=== PATIENT | female | born 1995 | race Two or more races ===

== ENCOUNTER 2016-11-18 09:43 | Emergency (ER) | payer OTHER ==
[2016-11-18 09:48] VITALS: BP 127/67; PULSE 75; TEMP 98; BMI 24.0
--- NOTE | 2016-11-18 10:11 | PDOC ---
History of Present Illness - General Chief Complaint: Vaginal Bleeding Stated Complaint: 15 WKS PREG, BLEEDING, SIDES PAIN Time Seen by Provider: 11/18/16 10:07 History Source: Patient - History of Present Illness Initial Comments: 11/18/16 10:41 Ms. Declan Rossi is a 21 y/o female , 15 weeks confirmed IUP at last OB visit two weeks ago. Pt. presents to the ED today complaining of hematuria and flank pain. Pt. states that the pain and bleeding started on Wednesday11/14/16. Admits to dysuria, frequency, unable to finish urinating. Denies bleeding from the vaginal canal, passage of tissue from the vaginal canal. Denies fevers, chills, chest pain, SOB. Pt. does have established OB care. REVIEW OF SYSTEMS: GENERAL/CONSTITUTIONAL: No fever or chills. No weakness. No weight change. HEAD, EYES, EARS, NOSE AND THROAT: No change in vision. No ear pain or discharge. No sore throat. CARDIOVASCULAR: No chest pain or palpitations. RESPIRATORY: No cough, wheezing, or shortness of breath. GASTROINTESTINAL: No nausea, vomiting, diarrhea or constipation. GENITOURINARY: (-) dysuria, frequency, hematuria, or change in urination. MUSCULOSKELETAL: No joint or muscle swelling or pain. No neck or back pain. SKIN: No rash or easy bruising. NEUROLOGIC: No headache, vertigo, loss of consciousness, or loss of sensation. PSYCHIATRIC: No depression or anxiety. ENDOCRINE: No increased thirst. No abnormal weight change. HEMATOLOGIC/LYMPHATIC: No anemia, easy bleeding, or history of blood clots. ALLERGIC/IMMUNOLOGIC: No hives or skin allergy. No latex allergy. Past History - Past Medical History Allergies/Adverse Reactions: Allergies Allergy/AdvReac Type Severity Reaction Status Date / Time No Known Allergies Allergy Verified 11/18/16 09:48 Other medical history: NONE - Psycho/Social/Smoking Cessation Hx Anxiety: No Suicidal Ideation: No Smoking History: Never smoked Hx Alcohol Use: No Drug/Substance Use Hx: No Substance Use Type: None *Physical Exam - Vital Signs Last Vital Signs Temp Pulse Resp BP Pulse Ox 98.0 F 75 20 127/67 100 11/18/16 09:45 11/18/16 09:45 11/18/16 09:45 11/18/16 09:45 11/18/16 09:45 - Physical Exam Comments: 11/18/16 11:09 GENERAL: The patient is afebrile, awake, alert, and fully oriented, in no acute distress. HEAD: Normal with no signs of trauma. ENT: Pupils equal, round and reactive to light, extraocular movements intact, sclera anicteric, conjunctiva clear. Neck supple. LUNGS: Clear to auscultation bilaterally. Normal excursion. No respiratory distress or use of accessory muscles. CV: RRR, S1/S2, no MRG. Cap refill < 2 sec. ABDOMEN: Soft, non-distended, non-tender. EXTREMITIES: Normal range of motion, no edema. NEUROLOGICAL: Normal speech, normal gait. CN II-XII grossly intact. PSYCH: Normal mood, normal affect. SKIN: Warm, dry, normal turgor, no rashes or lesions noted. exam: (-) CVA tenderness. No erythema around the urethra opening. Cervical os is closed. No active bleeding from os No blood in the vault. Increased discharge in the vaginal canal. Medical Decision Making - Medical Decision Making 11/18/16 11:14 Ms. Declan Ramirez is a 21 y/o female, with confirmed IUP approximatley 15 weeks from OB care. Pt. is a well appearing female with reported dysuria, hematuria and increased frequency and some flank pain. Most likely presentation of a UTI. Less likely pyleonephritis due to lack of fever and CVA tenderness. No evidence of threatened as the cervical os is closed and no bleeding is noted. Confirmed with bedside US with normal heart rate and movement. Will obtain UA and UC Will treat empirically with antibiotics. Consider discharge. *DC/Admit/Observation/Transfer Diagnosis at time of Disposition: UTI (urinary tract infection) during - Discharge Dispostion Disposition: HOME - Patient Instructions Printed Discharge Instructions: DI for Urinary Tract Infection (UTI) Additional Instructions: You have a urinary tract infection. We have prescribed antibiotics for you to take that are safe for . Take the medicine as prescribed and finish the prescription even if you feel better. Urinary tract infections are common in . Drink plenty of water as this can help with symptom management. Preliminary ultrasound done today shows a normal heart rate and movement. If you have worsening of symptoms, are unable to urinate, increased back pain or fevers return to the ED. Follow up with your CHIP TESTER in one week.
[2016-11-18 11:05] LABS: URINE APPEARANCE SLCLOUDY; URINE BILIRUBIN NEGATIVE (NEGATIVE); URINE COLOR STRAW; URINE GLUCOSE (UA) NEGATIVE (NEGATIVE); URINE KETONE NEGATIVE (NEGATIVE); URINE LEUK ESTERASE NEGATIVE (NEGATIVE); URINE NITRITE NEGATIVE (NEGATIVE); URINE PROTEIN NEGATIVE (NEGATIVE); URINE UROBILINOGEN NEGATIVE E.U./dl (0.2-1.0)
[2016-11-18 11:06] LABS: URINE BLOOD 1+ (NEGATIVE)
--- NOTE | 2016-11-18 11:09 | PDOC ---
*Physical Exam - Vital Signs Last Vital Signs Temp Pulse Resp BP Pulse Ox 98.0 F 75 20 127/67 100 11/18/16 09:45 11/18/16 09:45 11/18/16 09:45 11/18/16 09:45 11/18/16 09:45 Medical Decision Making - Medical Decision Making 11/18/16 11:04 Patient seen and evaluated with the nurse practitioner. 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 No pelvic cramping or vaginal bleeding or passage of clots or tissue. No fevers or chills. Agree with exam as noted No vaginal bleeding on speculum exam Bedside ultrasound shows live IUP with normal heart rate 21-year-old female second trimester presents with symptoms consistent with UTI, well-appearing and afebrile, not clinically consistent with pyelonephritis. Check UA and culture Empiric antibiotics for symptomatically UTI Reassurance and discharge with OB follow-up *DC/Admit/Observation/Transfer Diagnosis at time of Disposition: UTI (urinary tract infection) during - Discharge Dispostion Condition at time of disposition: Stable
[2016-11-18 11:26] LABS: URINE BACTERIA RARE /hpf (NONE SEEN); URINE MUCUS RARE; URINE RBC 2 /hpf (0-3); URINE WBC 3 /hpf (3-5)
== END 2016-11-18 12:07 | disposition home or self-care (01) ==
LOC: JER 09:43
DX: O23.42 Unspecified infection of urinary tract in pregnancy, second trimester (principal); Z3A.15 15 weeks gestation of pregnancy
CPT/HCPCS: 81003; 81015; 87086; 87186; 99282-25

== ENCOUNTER 2017-05-24 21:45 | Inpatient (IN) | payer OTHER ==
[2017-05-24 23:03] VITALS: BMI 24.1
[2017-05-24 23:45] LABS: BASOPHIL 0.2 % (0-2.0); EOSINOPHIL 0.4 % (0-4.5); MCH 24.9 pg (25.7-33.7); MCHC 31.9 g/dl (32.0-36.0); MEAN CELL VOLUME 78.1 fl (80-96); MEAN PLT VOLUME 10.5 fl (7.5-11.1); PLATELET COUNT 157 K/MM3 (134-434); RDW 17.7 % (11.6-15.6); WHITE BLOOD COUNT 11.7 K/mm3 (4.0-10.0)
[2017-05-25 00:09] LABS: INR 0.95 (0.82-1.09); PROTHROMBIN TIME (PATIENT) 10.4 SEC (9.98-11.88)
[2017-05-25 00:11] LABS: ACTIVATED PTT 26.9 SECONDS (26.9-34.4)
[2017-05-25 00:12] LABS: ANION GAP 9 (8-16); CALCIUM 8.4 mg/dL (8.5-10.1); CO2 24 mmol/L (21-32); CREATININE 0.5 mg/dL (0.55-1.02); GLUCOSE,RANDOM 97 mg/dL (74-106)
[2017-05-25] MEDS: DEXTROSE 5%-LACTATED RINGERS 1,000 ML IV SCH ×2 (03:00→08:20)
[2017-05-25] MEDS ORDERED: OXYTOCIN 15 UNITS/ LR 250 ML 250 ML IVPB SCH (06:45)
[2017-05-25] MEDS ORDERED: BUTORPHANOL TARTRATE 1 MG/ML VIAL IVPUSH ONE (09:00)
--- NOTE | 2017-05-25 09:07 | HP ---
Past Medical History - Primary Care Physician PCP:: Lamin Staples - Admission Chief Complaint: 40.6 weeks, ;labor History of Present Illness: 22 yo f edc by sono 05/18 17 . 40.6 weeks, in labor cx 2 cm 80 vx -2 mi, fhr cat 1, irregular contraction, , hx of marginal cord insertion History Source: Patient Limitations to Obtaining History: No Limitations - Past Medical History ...: 1 ...Para: 0 ...Term: 0 ...: 0 ...Spon : 0 ...Induced : 0 ...Multiple Gestation: 0 ...LMP: 08/11/16 ... Weeks Gestation by Dates: 40.6 ...EDC by Dates: 05/18/17 ...EDC by Sono: 05/18/17 - Past Surgical History Hx Myomectomy: No Hx Transabdominal Cerclage: No - Smoking History Smoking history: Never smoked Have you smoked in the past 12 months: No - Alcohol/Substance Use Hx Alcohol Use: No - Social History Usual Living Arrangement: Yes: With Spouse History of Recent Travel: No Home Medications - Allergies Allergies/Adverse Reactions: Allergies Allergy/AdvReac Type Severity Reaction Status Date / Time No Known Allergies Allergy Verified 05/24/17 22:03 - Home Medications Home Medications: Ambulatory Orders Vitamins (Sjr) - 1 tab PO DAILY 05/23/17 Review of Systems - Review of Systems Constitutional: reports: No Symptoms Eyes: reports: No Symptoms HENT: reports: No Symptoms Neck: reports: No Symptoms Gastrointestinal: reports: No Symptoms Genitourinary: reports: No Symptoms Musculoskeletal: reports: No Symptoms Integumentary: reports: No Symptoms Neurological: reports: No Symptoms Endocrine: reports: No Symptoms Hematology/Lymphatic: reports: No Symptoms Psychiatric: reports: No Symptoms Physical Exam - Maternity Vital Signs: Vital Signs Temperature 98.4 F 05/25/17 08:00 Pulse Rate 85 05/25/17 08:00 Respiratory Rate 20 05/25/17 08:00 Blood Pressure 137/78 05/25/17 08:00 O2 Sat by Pulse Oximetry (%) Constitutional: Yes: Well Nourished, No Distress, Calm Eyes: Yes: WNL, Conjunctiva Clear, EOM Intact HENT: Yes: WNL, Atraumatic, Normocephalic Neck: Yes: WNL, Supple, Trachea Midline Cardiovascular: Yes: WNL, Regular Rate and Rhythm Breast(s): Yes: WNL - Abdominal Exam/OB Fundal Height: 40 Number of Fetuses: Single Presentation: Vertex Contractions: Yes Regularity: Irregular Intensity: Mod/Strong Monitor Mode: External Heart Rate Location: LLQ Accelerations: Uniform Decelerations: None - Vaginal Exam/OB Vaginal Bleediing: No Speculum Exam: No Dilatation (cm): 2 cm Effacement (%): 80 Amniotic Membrane Status: Intact Presentation: Vertex/Position Station: -2 - Physical Exam Musculoskeletal: Yes: Back Pain Extremities: Yes: WNL Edema: Yes Edema: LLE: Trace, RLE: Trace Deep Tendon Reflex Grade: Normal +2 - Labs Lab Results: CBC, BMP 05/24/17 23:15 05/24/17 23:15 Hemorrhage Risk Assessment - Risk Factors Medium Risk Factors: Yes: None Risk Score: 0 Risk Level: Low Risk Problem List - Problems (1) Post term over 40 weeks Code(s): O48.0 - POST-TERM (2) Labor established Code(s): [id number] - Assessment/Plan admit , FHM , , if contraction not regular ,advised pitocin stimulation.rba discussed
--- NOTE | 2017-05-25 09:08 | PN ---
Progress Note (short form) - Note Progress Note: cx 4 cm ,80 vx -2 mi, op . fhr cat 1, contraction regular q 2 min Problem List - Problems (1) Post term over 40 weeks Code(s): O48.0 - POST-TERM (2) Labor established Code(s): [id number] -
--- NOTE | 2017-05-25 12:19 | PN ---
Progress Note (short form) - Note Progress Note: cx 5 cm, 80 vx -2 , mi fhr cat 1. contraction regular Problem List - Problems (1) Post term over 40 weeks Code(s): O48.0 - POST-TERM (2) Labor established Code(s): [id number] -
--- NOTE | 2017-05-25 13:21 | PN ---
Progress Note (short form) - Note Progress Note: cx 9 cm 100 vx -2 srom clear, fhr cat1 Problem List - Problems (1) Post term over 40 weeks Code(s): O48.0 - POST-TERM (2) Labor established Code(s): [id number] -
[2017-05-25] MEDS ORDERED: ELECTROLYTE-148 SOLN 500 ML IV SCH (17:30)
[2017-05-25] MEDS ORDERED: CITRIC ACID/SODIUM CITRATE 30 ML UNIT-DOSE CUP PO ONE ×2 (17:30→18:16)
[2017-05-25] MEDS ORDERED: ELECTROLYTE-148 SOLN 1,000 ML IV SCH ×2 (18:00→18:30)
--- NOTE | 2017-05-25 18:16 | PN ---
Progress Note (short form) - Note Progress Note: cx 6 cm , chikaen cx , no further dilation -1 ,fhr cat 1, advised c/s for cpd, rba discussed Problem List - Problems (1) Post term over 40 weeks Code(s): O48.0 - POST-TERM (2) Labor established Code(s): [id number] -
[2017-05-25] MEDS ORDERED: IBUPROFEN 800 MG/8 ML IJ IVPB PRN (18:18)
[2017-05-25] MEDS ORDERED: WITCH HAZEL 50% (TUCKS) 40 PAD/JAR PAD TP PRN (18:18)
[2017-05-25] MEDS ORDERED: BENZOCAINE 28 GM HEMORRHOIDAL OINTMENT PR PRN (18:18)
[2017-05-25] MEDS ORDERED: oxyCODONE HCL 5 MG TABLET PO PRN (18:18)
[2017-05-25] MEDS ORDERED: diphenhydrAMINE HCL 25 MG CAPSULE (FP) PO PRN (18:18)
[2017-05-25] MEDS ORDERED: BENZOCAINE 20% 57 GM BOTTLE TP PRN (18:18)
[2017-05-25] MEDS ORDERED: METHYLERGONOVINE MALEATE 0.2 MG/1 ML AMP IM PRN (18:18)
[2017-05-25] MEDS ORDERED: OXYTOCIN 20 UNITS in 0.9% NS 1,000 ML IV SCH (18:30)
[2017-05-25] MEDS ORDERED: DEXTROSE 5%-LACTATED RINGERS 1,000 ML IV SCH (18:30)
[2017-05-25] MEDS ORDERED: ONDANSETRON 4 MG/2 ML VIAL IVPB PRN (18:43)
[2017-05-25 19:15] LABS: ARTERIAL BLOOD GAS pH 7.28 (7.35-7.45)
[2017-05-25 19:16] LABS: ARTERIAL BLD GAS O2 SATURATION 7.5 % (90-98.9); ARTERIAL BLOOD GAS BASE EXCESS -0.5 meq/l (-2-2); ARTERIAL BLOOD GAS HCO3 27.4 meq/L (22-26); ARTERIAL BLOOD GAS PO2 9.6 mmHg (80-100)
[2017-05-25 19:17] LABS: PT. ON O2? NO
[2017-05-25 19:21] LABS: ARTERIAL BLD GAS O2 SATURATION 7.2 % (90-98.9); ARTERIAL BLOOD GAS BASE EXCESS -0.4 meq/l (-2-2); ARTERIAL BLOOD GAS HCO3 27.5 meq/L (22-26); ARTERIAL BLOOD GAS PO2 8.9 mmHg (80-100); LPM/O2% 21%; PT. ON O2? NO
[2017-05-25 19:22] LABS: TYPE OF O2 ROOM AIR
[2017-05-25 19:23] LABS: ARTERIAL BLOOD GAS pH 7.28 (7.35-7.45)
[2017-05-26] MEDS: CEFAZOLIN (PRE-DOCKED) 50 ML IVPB SCH ×2 (01:21→09:45)
[2017-05-26 07:56] LABS: BASOPHIL 0.1 % (0-2.0); EOSINOPHIL 0.1 % (0-4.5); MCH 25.2 pg (25.7-33.7); MCHC 32.3 g/dl (32.0-36.0); MEAN PLT VOLUME 10.2 fl (7.5-11.1); NEUTROPHILS 89.9 % (42.8-82.8); PLATELET COUNT 126 K/MM3 (134-434); RDW 17.8 % (11.6-15.6); WHITE BLOOD COUNT 14.9 K/mm3 (4.0-10.0)
[2017-05-26] MEDS: ENOXAPARIN NA (PORCINE) 40 MG/0.4 ML DISP.SYRIN SQ SCH (09:52)
[2017-05-26] MEDS ORDERED: DIPHTH,PERTUSS(ACELL),TET 0.5 ML DISP.SYRIN IM ONE (10:00)
--- NOTE | 2017-05-26 10:34 | PN ---
Progress Note (short form) - Note Progress Note: pod1 , s/p c/s has mild cramps, no excess vaginal bleeding CBC, BMP 05/26/17 07:00 05/24/17 23:15 Last Vital Signs Temp Pulse Resp BP Pulse Ox 98.2 F 83 20 103/62 100 05/26/17 09:38 05/26/17 09:38 05/26/17 09:38 05/26/17 09:38 05/26/17 09:00 abdomen soft, no distension, no cva incision dry, clean lochia mild no calf tenderness plan ambulate, . advance diet, , pain management Problem List - Problems (1) Post term over 40 weeks Code(s): O48.0 - POST-TERM (2) Labor established Code(s): [id number] -
--- NOTE | 2017-05-26 12:40 | PN ---
Progress Note (short form) - Note Progress Note: Post op day#1.S/P C section under spinal anesthesia with duramorph uneventful.Patient stable and has little pain for which she is on medication.No any anesthesia related problem.Patient DC from the anesthesia care.
[2017-05-26] MEDS: SIMETHICONE 80 MG TAB.CHEW (FP) PO PRN ×2 (12:43→21:30)
[2017-05-26] MEDS: IBUPROFEN 600 MG TABLET (FP) PO PRN ×2 (12:44→21:30)
[2017-05-26] MEDS: oxyCODONE HCL 5 MG TABLET PO PRN ×2 (12:44→21:31)
[2017-05-26] MEDS ORDERED: BISACODYL 10 MG SUPP.RECT RC PRN (18:18)
[2017-05-27] MEDS: SIMETHICONE 80 MG TAB.CHEW (FP) PO PRN ×2 (07:35→14:45)
[2017-05-27] MEDS: IBUPROFEN 600 MG TABLET (FP) PO PRN ×2 (07:35→14:46)
[2017-05-27] MEDS: oxyCODONE HCL 5 MG TABLET PO PRN ×2 (07:35→14:46)
--- NOTE | 2017-05-27 08:11 | PN ---
Post Progress Note - Subjective Subjective: 22 yo Para 1, status post primary , seen and evaluated. She's doing well; she's breast feeding. Post Day: 2 Type of Delivery: Primary C/S Vital Signs: Vital Signs Temperature 98.3 F 05/26/17 21:00 Pulse Rate 90 05/26/17 21:00 Respiratory Rate 20 05/26/17 21:00 Blood Pressure 125/65 05/26/17 21:00 O2 Sat by Pulse Oximetry (%) 100 05/26/17 09:00 Breast Exam: Yes: Soft Uterus: Yes: Fundus Firm Incision: Yes: Dressing dry and intact Abdomen/GI: Yes: Abdomen soft, Tolerating PO Lochia: Yes: Rubra Lochia, amount: Small Extremities: Yes: Calves non-tender Perineum: Yes: Intact Activity: Other (She's lying in bed) - Labs Labs: CBC WBC 14.9 K/mm3 (4.0-10.0) H 05/26/17 07:00 RBC 3.77 M/mm3 (3.60-5.2) 05/26/17 07:00 Hgb 9.5 GM/dL (10.7-15.3) L 05/26/17 07:00 Hct 29.4 % (32.4-45.2) L 05/26/17 07:00 MCV 78.0 fl (80-96) L 05/26/17 07:00 MCH 25.2 pg (25.7-33.7) L 05/26/17 07:00 MCHC 32.3 g/dl (32.0-36.0) 05/26/17 07:00 RDW 17.8 % (11.6-15.6) H 05/26/17 07:00 Plt Count 126 K/MM3 (134-434) L 05/26/17 07:00 MPV 10.2 fl (7.5-11.1) 05/26/17 07:00 Neutrophils % 89.9 % (42.8-82.8) H 05/26/17 07:00 Lymphocytes % 6.2 % (8-40) L D 05/26/17 07:00 Monocytes % 3.7 % (3.8-10.2) L 05/26/17 07:00 Eosinophils % 0.1 % (0-4.5) 05/26/17 07:00 Basophils % 0.1 % (0-2.0) 05/26/17 07:00 Problem List - Problems (1) Status post primary low transverse section Code(s): Z98.891 - HISTORY OF UTERINE SCAR FROM PREVIOUS SURGERY Assessment/Plan Status post primary Stable Ambulation Analgesia as needed Continue routine post op care
[2017-05-27] MEDS: ENOXAPARIN NA (PORCINE) 40 MG/0.4 ML DISP.SYRIN SQ SCH (10:16)
[2017-05-27] MEDS ORDERED: SENNOSIDES/DOCUSATE COMBO (SENNA PLUS) TABLET (UD) PO PRN (22:00)
--- NOTE | 2017-05-28 07:17 | PN ---
Progress Note (short form) - Note Progress Note: s/p c/s no c/o , void ok,, passing gas abdomen soft, no distension , no cva incision dry, clean no calf tenderness CBC, BMP 05/26/17 07:00 05/24/17 23:15 Last Vital Signs Temp Pulse Resp BP Pulse Ox 99.4 F 84 20 106/60 100 05/27/17 22:00 05/27/17 22:00 05/27/17 22:00 05/27/17 22:00 05/26/17 09:00 plan ambulate,, cbc in am Problem List - Problems (1) Post term over 40 weeks Code(s): O48.0 - POST-TERM (2) Labor established Code(s): [id number] -
[2017-05-28 08:28] LABS: BASOPHIL 0.2 % (0-2.0); EOSINOPHIL 1.5 % (0-4.5); MCHC 31.8 g/dl (32.0-36.0); MEAN CELL VOLUME 78.7 fl (80-96); MEAN PLT VOLUME 10.2 fl (7.5-11.1); NEUTROPHILS 81.8 % (42.8-82.8); PLATELET COUNT 154 K/MM3 (134-434); RDW 17.9 % (11.6-15.6); WHITE BLOOD COUNT 8.7 K/mm3 (4.0-10.0)
[2017-05-28] MEDS: oxyCODONE HCL 5 MG TABLET PO PRN (09:12)
[2017-05-28] MEDS: IBUPROFEN 600 MG TABLET (FP) PO PRN ×2 (09:12→19:20)
[2017-05-28] MEDS: SIMETHICONE 80 MG TAB.CHEW (FP) PO PRN ×2 (09:12→19:20)
[2017-05-28] MEDS: ENOXAPARIN NA (PORCINE) 40 MG/0.4 ML DISP.SYRIN SQ SCH (09:13)
--- NOTE | 2017-05-28 11:08 | OP ---
DATE OF OPERATION: 05/25/2017 PREOPERATIVE DIAGNOSIS: post dates, labor, Pitocin stimulation, failure to dilate. POSTOPERATIVE DIAGNOSIS: post dates, labor, Pitocin stimulation, failure to dilate. PROCEDURE: Primary low segment transverse section. SURGEON: Lamin Staples MD SOCIAL SCIENCE MANAGER: MARIA INES Pop ANESTHESIA: Spinal. DESCRIPTION OF PROCEDURE: The patient was taken to the operating room under adequate epidural anesthesia. Abdomen and perineum was prepped and draped. Pfannenstiel abdominal skin incision was made. Abdominal wall was cut layer by layer until the peritoneum was exposed and incised. Upon entering the abdominal cavity, lower uterine segment was identified, and uterovesical fold of peritoneum established. Bladder was pushed down. Then with the lower blade of the Joyce retractor in the pelvis, a low transverse uterine incision was made. Incision extended laterally. Amniotic sac was entered. Light meconium amniotic fluid. Head delivered without any difficulty. Live baby was delivered. Placenta was delivered manually. Uterine cavity was cleaned of all remaining tissue. Uterine incision was closed in 2 layers, the first layer with 0 Biosyn continuous suture, the second layer with 0 Biosyn imbricating the first layer. Bladder flap was closed with 0 Biosyn continuous suture. Both tubes and ovaries were checked and normal. No active bleeding was seen. All of the lap pad, sponge, and instrument counts were correct. Peritoneum was closed with 0 Biosyn continuous suture. Muscles were brought together with interrupted sutures of 0 Biosyn. Fascia was closed with 0 Biosyn continuous suture. Subcutaneous fat interrupted suture of 0 Biosyn and the skin was closed with melissa. The patient tolerated the procedure well and left the OR in good condition. Scott [id number]
--- NOTE | 2017-05-28 15:31 | PATH ---
Surgical Pathology Report Patient Name: NAYELI BAUER Med. Rec. #: [id number] /Age/Gender: 1995 (Age: 22) / F Account: [id number] Location: [facility] OBS/SPIRITS MODEL Taken: 05/25/2017 Received: 05/26/2017 Reported: 05/28/2017 Physicians: Lamin Staples M.D. Specimen(s) Received PLACENTA Clinical History , 41 weeks gestation, meconium, failure to dilate Primary c/section Final Diagnosis PLACENTA, DELIVERY: FOCALLY DISRUPTED THIRD TRIMESTER PLACENTA WITH INFARCT AND FIBRIN THROMBUS WITH CALCIFICATIONS, MILD INCREASE IN PRECHORIONIC FIBRIN DEPOSITION, THREE VESSEL UMBILICAL CORD, AND PLACENTAL MEMBRANES WITH FOCAL LAMELLAR NECROSIS, FOCAL ACUTE INFLAMMATION OF CHORIONIC PLATE AND MILD MECONIUM HISTIOCYTOSIS. Electronically Signed Brennan Chris M.D. Gross Description The specimen is received fresh labeled placenta and is a 432 gram, 17.0 x 14.5 x 3.0 cm. placenta with attached membranes and umbilical cord. The attached membranes are riggins, focally thickened and insert marginally. The umbilical cord measures 34 cm in length and averages 1 cm in diameter. The cord inserts at the margin. No true knots or strictures are identified. Cut surface of the umbilical cord reveals 3 vessels. The surface is mills with light green staining, fibrin deposition and appropriate caliber vessels. The maternal surface is red-brown with focal defects. Sectioning reveals a 7.0 x 4.0 x 2.2 cm riggins, firm parenchymal lesion. The remaining placental parenchyma is red-brown and spongy. Computer Compositor sections are submitted in 5 cassettes as follows: 1-membrane roll and umbilical cord; 7-0-sgfrdhfw from large lesion; 7-0-stxswcqzcr sales representative girls' apparel full thickness sections the placenta. /05/27/2017 saudi05/27/2017
[2017-05-28] MEDS ORDERED: ACETAMINOPHEN 325 MG TABLET (FP) ONE (19:16)
[2017-05-28] MEDS: ACETAMINOPHEN 325 MG TABLET (FP) PO PRN (19:21)
[2017-05-29] MEDS: ENOXAPARIN NA (PORCINE) 40 MG/0.4 ML DISP.SYRIN SQ SCH (09:10)
[2017-05-29 11:28] VITALS: BP 114/72; PULSE 74; TEMP 98.9
[2017-05-29] MEDS: IBUPROFEN 600 MG TABLET (FP) PO PRN (12:40)
[2017-05-29] MEDS: ACETAMINOPHEN 325 MG TABLET (FP) PO PRN (12:41)
--- NOTE | 2017-06-01 06:10 | DS ---
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 Vital Signs: Vital Signs Temperature 98.9 F 05/29/17 10:25 Pulse Rate 74 05/29/17 10:25 Respiratory Rate 20 05/29/17 10:25 Blood Pressure 114/72 05/29/17 10:25 O2 Sat by Pulse Oximetry (%) 100 05/26/17 09:00 Constitutional: Yes: Well Nourished, No Distress, Calm Eyes: Yes: WNL, Conjunctiva Clear, EOM Intact HENT: Yes: WNL, Atraumatic, Normocephalic Neck: Yes: WNL, Supple, Trachea Midline Cardiovascular: Yes: WNL, Regular Rate and Rhythm Respiratory: Yes: WNL, Regular, CTA Bilaterally Gastrointestinal: Yes: WNL ...Rectal Exam: Yes: WNL Renal/: Yes: WNL ....Post : Yes: Uterus firm, Uterus non-tender, Slight lochia rubra Breast(s): Yes: WNL Musculoskeletal: Yes: WNL Extremities: Yes: WNL Integumentary: Yes: WNL Neurological: Yes: WNL, Alert, Oriented ...Motor Strength: WNL Psychiatric: Yes: WNL, Alert, Oriented Labs: CBC, BMP 05/28/17 07:00 05/24/17 23:15 Delivery - Delivery Section: Primary, Low Flap Transverse (no complication) Type of Anesthesia: Spinal Episiotomy/Laceration: None EBL (cc): 500 Delivery, Single - Stages of Labor Date 1st Stage Initiatied: 05/25/17 Time 1st Stage Initiated: 01:00 Date of Delivery: 05/25/17 Time of Delivery: 18:30 Time Placenta Delivered: 18:31 Placenta: Yes: Spontaneous - Condition of Infant Thread Singer/Division Supervisor Present: Yes Name: Chandrakant Mustafa Gender: Male Weight: 9 lb 10 oz Position: Left, OA Total Hours ROM (Hrs/Mins): 4/21 - 1 Minute Total Score: 8 5 Minutes Total Score: 9 - [place] Feeding Plan Initial Plan: Elected not to breastfeed exclusively throughout hospitalization Discharge Summary Reason For Visit: LABOR Procedures: Principal: primary LST c/s Hospital Course: uneventful Condition: Good - Instructions Diet, Activity, Other Instructions: go to clinic on wednesday for staple removal Referrals: Lamin Staples MD [Staff Physician] - Disposition: HOME - Home Medications Comprehensive Discharge Medication List: Ambulatory Orders Vitamins (Sjr) - 1 tab PO DAILY 05/23/17 Ibuprofen [Motrin -] 600 mg PO TID #21 tablet 05/29/17
== END 2017-05-29 13:30 | disposition home or self-care (01) | DRG 540 ==
LOC: JDEL 21:45 → JLDR 22:30 → J3W 05-25 20:35
PROVIDERS: ADMIT Obstetrics & Gynecology; ATTEND Obstetrics & Gynecology
PROC: 10D00Z1 Extraction of Products of Conception, Low, Open Approach (ICD-10-PCS; principal; 2017-05-25)
DX: O48.0 Post-term pregnancy (principal); Z3A.40 40 weeks gestation of pregnancy; O62.0 Primary inadequate contractions; Z37.0 Single live birth
CPT/HCPCS: 36415; 36600; 80048; 82803; 85025; 85610; 85730; 86593; 86850; 86900; 86901; 88307-TC; 90715